=== PATIENT | female | born 1985 | race Caucasian/White ===

== ENCOUNTER → 2022-05-31 10:09 | Outpatient (BNVA) | payer MEDICAID, SELFPAY | PROVIDERS: PCP Nurse Practitioner Family; Visit Provider Nurse Practitioner Family | DX: N93.9 Abnormal uterine and vaginal bleeding, unspecified (principal); Z13.6 Encounter for screening for cardiovascular disorders; D64.9 Anemia, unspecified | CPT/HCPCS: 80053; 80061; 82607; 82670; 82728; 82746; 83001; 83002; 83550; 84146; 84439; 84443; 85025 ==

== ENCOUNTER → 2022-06-26 09:10 | Outpatient (BNVA) | payer MEDICAID, SELFPAY | PROVIDERS: PCP Nurse Practitioner Family; Visit Provider Nurse Practitioner Family | DX: D64.9 Anemia, unspecified (principal); N93.9 Abnormal uterine and vaginal bleeding, unspecified | CPT/HCPCS: 80053; 84146; 85025 ==

== ENCOUNTER → 2022-07-10 09:00 | Outpatient (BNVA) | payer MEDICAID, SELFPAY | PROVIDERS: PCP Nurse Practitioner Family; Visit Provider Obstetrics & Gynecology | DX: Z12.4 Encounter for screening for malignant neoplasm of cervix (principal); N93.9 Abnormal uterine and vaginal bleeding, unspecified; E22.1 Hyperprolactinemia | CPT/HCPCS: 83036; 83525; 84443; 87624; 88305 ==

== ENCOUNTER → 2022-08-21 11:02 | Outpatient (BNVA) | payer MEDICAID, SELFPAY | PROVIDERS: PCP Nurse Practitioner Family; Visit Provider Obstetrics & Gynecology | DX: N93.9 Abnormal uterine and vaginal bleeding, unspecified (principal); N83.292 Other ovarian cyst, left side | CPT/HCPCS: 76830 ==

== ENCOUNTER 2022-09-04 15:53 | Outpatient (CLI) | payer MEDICAID, SELFPAY ==
--- NOTE | 2022-09-04 16:00 | MR_ITS ---
WS: [id number] MRI HEAD WITHOUT AND WITH CONTRAST WITH ATTENTION TO THE PITUITARY TECHNIQUE: Sagittal T1, T2 axial, T2 axial FLAIR, axial susceptibility weighted imaging, axial diffus ion weighted images, and coronal T2 images were obtained. Pre and post-T1 axial and post T1 coronal i mages. ADC and FSPGR images. Post gadolinium images with pituitary protocol with dynamic images. Sin e CLINICAL INFORMATION: E22.1 - Hyperprolactinemia COMPARISON: None. FINDINGS: 4 mm hypoenhancing focus in the RIGHT aspect of the pituitary seen on the post gadolinium and dynamic images suspicious for microadenoma. Otherwise normal pituitary enhancement. No suprasellar lesions. Normal optic chiasm and pituitary infundibulum. Normal cavernous sinuses and Meckel's cave. No evidence of restricted diffusion to suggest acute ischemia. Ventricular system and basal cisterns are patent. No suspicious intracranial signal abnormalities. Normal posterior fossa. Normal vascular flow voids at the skull base. No extra-axial fluid collections. No evidence of mass or mass effect. P aranasal sinuses and mastoid air cells well aerated. No hemosiderin on susceptibly weighted images. Temporal lobes and hippocampal formations are normal i n appearance. Normal posterior nasopharynx. No abnormal gadolinium enhancement. Normal dural venous sinuses. MR/MR pituitary wo/w con* [id number] IMPRESSION: 1. 4 mm focus of hypoenhancement RIGHT aspect of the pituitary suspicious for microadenoma.Correlation with pituitary function studies. 2. Pituitary is otherwise normal in appearance. Normal optic chiasm and pituit mendy infundibulum. 3. No other suspicious intracranial signal abnormalities. 4. No other suspicious findings.
[2022-09-04] MEDS: gadobenate dimeglumine 20 mL vial IV (16:44)
== END 2022-09-04 15:54 | disposition home or self-care (01) ==
LOC: RAD 15:54
PROVIDERS: PCP Nurse Practitioner Family; Visit Provider Obstetrics & Gynecology
DX: E22.1 Hyperprolactinemia (principal)
CPT/HCPCS: 70553; A9577

== ENCOUNTER 2022-10-17 08:02 | Day surgery (SDC) | payer MEDICAID, SELFPAY ==
[2022-10-16 08:42] VITALS: BMI 36.3
[2022-10-17] VITALS (10 sets, daily range): BP systolic 126–159; BP diastolic 74–99; PULSE 86–106; RESP 16–22; TEMP 36.1–36.4; O2SAT 97–100
[2022-10-17] MEDS: sodium chloride 0.9% 1,000 ML 30 ML IV (08:25)
--- NOTE | 2022-10-17 09:32 | W.PM.OPSUD ---
Surgery/Procedure H&P Update DATE OF PROCEDURE: October 17, 2022 DATE H&P PERFORMED: 10/13/22 H&P UPDATE INFORMATION: I have reviewed H&P completed within last 30 days, I have examined patient prior to procedure and No changes to prior documentation PREOP DIAGNOSIS: abnormal endometrial ultrasound PLANNED PROCEDURE: Operation Date: 10/17/22 09:30 Proposed Procedures p Hysteroscopy, dilation and curettage with Myosure 66912, [id number],N93.9(Not Applicable) - Gisselle Lloyd MD s Dilation And Curettage (D&C)(Not Applicable) - Gisselle Lloyd MD Related Problem List Diagnoses (1) Abnormal endometrial ultrasound: (2) Abnormal uterine bleeding (AUB):
[2022-10-17] MEDS: ceFAZolin 2,000 MG in sodium chloride 0.9% (plus) 50 ML 100 MG IV (09:45)
--- NOTE | 2022-10-17 10:17 | ANES.PREANE2 ---
Pre-Anesthetic Assessment Height/Weight: Height 1.63 m Weight 96.162 kg Temp Pulse Resp BP Pulse Ox O2 Del Method 97 F L 106 H 18 159/94 99 10/17/22 08:13 10/17/22 08:13 10/17/22 08:13 10/17/22 08:25 10/17/22 08:13 10/17/22 08:13 Preop Diagnosis: abnormal endometrial ultrasound Operation Date: 10/17/22 09:30 Proposed Procedures p Hysteroscopy, dilation and curettage with Myosure 98690, [id number],N93.9(Not Applicable) - Gisselle Lloyd MD s Dilation And Curettage (D&C)(Not Applicable) - Gisselle Lloyd MD Familial anesthetic complications: none Was Beta Misbah taken within 24 hours: N/A Was Clonidine taken within 24 hours: N/A Last intake: Intake Last Liquid Date 10/17/22 Last Liquid Time 06:30 Last Solid Date 10/16/22 Last Solid Time 23:00 Social Alcohol and Tobacco Exam alert, oriented x 3 and regular rate & rhythm Airway Submandibular: within normal limits Cervical ROM: within normal limits Mallampati: Class II Dentition: full Pulmonary Chronic Obstructive Pulmonary Disease CV/HEM Anemia Anesthetic Plan ASA status: 2 Anesthesia: General Medications/Allergies Home Medications Medication Instructions Recorded Confirmed Last Taken Type No Known Home Medications 09/06/22 10/16/22 Unknown History Allergies Allergy/AdvReac Type Severity Reaction Status Date / Time No Known Allergies Allergy Verified 10/17/22 08:11 Current Medications Generic Name Dose Route Start Last Admin Trade Name Freq PRN Reason Stop Dose Admin Sodium Chloride 1,000 mls @ 30 mls/hr 10/17/22 08:15 10/17/22 08:25 Sodium Chloride 0.9% IV 10/18/22 08:14 30 mls/hr .Q24H WINSOME Administration PFSH Anesthesia Medical History No pertinent past medical history Surgical History No pertinent past surgical history Family History Grandfather Hypertension Grandmother Diabetes Family/Other Diabetes Denies family history of Colon cancer Ovarian cancer Heart disease Hypercholesteremia Breast cancer Uterine cancer Thyroid disease Stroke Female Reproductive History Date of last menstrual period: 10/10/22 Data Anesthesia Cardiac Studies: No Data to Display
--- NOTE | 2022-10-17 10:35 | PM.OP ---
Operative Report Date of procedure: October 17, 2022 Pre-op diagnosis: Preop Diagnosis abnormal endometrial ultrasound Post-op diagnosis: Thickened endometrium Procedure done: hysteroscopy, D&C, myosure Specimens removed/disposition: endometrial curettings to pathology Surgeon: Gisselle Lloyd Anesthesia: MAC Estimated blood loss (mL): 5 IV fluids (mL): 300 Complications: none Findings: hysteroscopy deficit 220 ml Condition: stable Disposition: PACU Procedure: The patient was taken to the operating room where monitored anesthesia was administered and to be adequate. She was prepped and draped in the normal sterile fashion in the dorsal lithotomy position in [facility]. A weighted speculum was placed into the vagina and the anterior lip of the cervix grasped with a single-tooth tenaculum. The uterus was sounded to 7 cm. The cervix was dilated to 16 Nepali. The hysteroscope was advanced into the endometrial cavity. There was excessive tissue visualized. The MyoSure device was activated and the tissue was removed. Pictures were taken pre and post procedure. All instruments were removed. The patient tolerated the procedure well. Sponge lap and needle counts were correct x3. She was taken to the recovery room in stable condition.
--- NOTE | 2022-10-17 10:39 | PM.DCS ---
Discharge Providers Date of Admission: 10/17/22 Date of Discharge: October 17, 2022 Attending Provider at Admission: Dr. Lloyd Attending Provider at Discharge: Gisselle Lloyd MD Primary Care Provider: SANDRA Torrez Diagnoses at Discharge Discharge Diagnosis (1) Abnormal endometrial ultrasound: Status: Acute (2) Abnormal uterine bleeding (AUB): Status: Acute Reason for Visit Reason for Visit: Abnormal uterine and vaginal bleeding, unspecifie Hospital Course Hospital Course The patient was admitted for surgery. she did well postoperatively and was ready for discharge. Discharge Data Studies Completed and Pending Pending at discharge Category Date Time Status ORHCG [OR HCG Qualitative Urine] Routine Lab 10/17/22 08:06 Ordered Pathology: Surgical [PTH] Routine Pth 10/17/22 10:30 Ordered Vitals Last Vital Signs Temp 97 F L 10/17/22 08:13 Pulse 106 H 10/17/22 08:13 Resp 18 10/17/22 08:13 BP 159/94 10/17/22 08:25 Pulse Ox 99 10/17/22 08:13 O2 Del Method 10/17/22 08:13 Discharge Plan Discharge Patient Disposition: Home Condition: Stable Prescriptions: Continued No Known Home Medications Discharge Orders: Discharge Order (Routine); Ordered 10/17/22 Ordered By: Gisselle Lloyd Discharge Attestations Time Spent in Discharge Care*: less than 30 min Quality Metrics Clinical Quality Measures [ No reported AMI, CVA or VTE this stay] Coding Level of Care Code Acute Code for Chg Fwd Diagnoses Abnormal endometrial ultrasound R93.5 Abnormal uterine bleeding (AUB) N93.9
[2022-10-17 10:49] LABS: OR HCG Qualitative Urine Negative (Negative)
--- NOTE | 2022-10-17 16:14 | ANE.PACU2 ---
Inpatient post-anesthesia follow up: Airway intact: Yes Vital signs: Temperature 97.5 F Pulse Rate 89 Respiratory Rate 16 Blood Pressure 136/87 Pulse Oximetry 99 Oxygen Delivery Me thod Room Air Oxygen Flow Rate Fraction of Inspir ed Oxygen Hydration adequate: Yes Nausea and vomiting: No Pain level: 2 Mental status: Baseline
== END 2022-10-17 11:25 | disposition home or self-care (01) ==
PROVIDERS: Anesthesiology; PCP Nurse Practitioner Family; Visit Provider Obstetrics & Gynecology
PROC: 0UDB8ZZ Extraction of Endometrium, Via Natural or Artificial Opening Endoscopic (ICD-10-PCS; CPT 58558; principal; 2022-10-17 09:20)
PROC: (CPT 58120; 2022-10-17 09:20)
DX: R93.89 Abnormal findings on diagnostic imaging of other specified body structures (principal); J44.9 Chronic obstructive pulmonary disease, unspecified
CPT/HCPCS: 58558; 81025; 84703; 88305; J0690; J2405; J2704; J3010; J7030

== ENCOUNTER 2022-12-12 10:20 | Observation (INO) | payer MEDICAID, SELFPAY ==
[2022-12-07 09:05] VITALS: BMI 35.6
[2022-12-07 09:48] LABS: Basophils # 0.1 10^3/uL (0.0-0.1); Basophils % 1.3 %; Eosinophils # 0.1 10^3/uL (0.0-0.8); Eosinophils % 1.8 %; Hematocrit 31.8 % (37.0-47.0); Hemoglobin 9.1 g/dL (11.5-15.3); Lymphocytes # 1.7 10^3/uL (0.8-4.8); Lymphocytes % 37.7 %; Mean Corpuscular HGB Conc 28.6 g/dL (30.0-36.0); Mean Corpuscular Hemoglobin 20.4 pg (28.0-34.0); Mean Corpuscular Volume 71.5 fl (81-99); Mean Platelet Volume 9.1 fL (7.4-10.4); Monocytes # 0.5 10^3/uL (0.2-0.9); Monocytes % 10.8 %; Neutrophils # 2.15 10^3/uL (1.8-7.7); Neutrophils % 48.2 %; Nucleated Red Blood Cells % 0 %; Platelet Count 470 10^3/cmm (130-400); Red Blood Count 4.45 10^6/uL (4.1-5.3); Red Cell Distribution Width 20.4 % (12.1-15.1); White Blood Count 4.5 10^3/uL (4.0-10.0)
--- NOTE | 2022-12-07 09:49 | ANES.PREANE2 ---
Pre-Anesthetic Assessment Height/Weight: Height 1.63 m Weight 94.347 kg Preop Diagnosis: abnormal endometrial ultrasound Operation Date: 12/12/22 08:45 Proposed Procedures p Laparoscopic assisted vaginal hysterectomy 14843 , bilateral [id number] , possible bilateral salpingo-oophorectomy 54459,N93.9(Not Applicable) - Gisselle Lloyd MD s Laparoscopic Salpingectomy(Bilateral) - Gisselle Lloyd MD Familial anesthetic complications: None Was Beta Misbah taken within 24 hours: N/A Was Clonidine taken within 24 hours: N/A Last intake: > 8hrs Social Alcohol (2-3 beers a night or up to 8 oz of whiskey/liquor a night) and Tobacco Exam alert, oriented x 3, clear to auscultation bilaterally and regular rate & rhythm Airway Mallampati: Class II Dentition: full Metabolic Morbid Obesity Anesthetic Plan ASA status: 2 Anesthesia: General Risk of > 500 ml blood loss (7ml/kg in children): No Medications/Allergies Home Medications Medication Instructions Recorded Confirmed Last Taken Type No Known Home Medications 09/06/22 12/07/22 Unknown History Allergies Allergy/AdvReac Type Severity Reaction Status Date / Time hydrocodone Allergy ADR-Vomitin Verified 12/07/22 09:05 g [facility] Anesthesia Medical History No pertinent past medical history Surgical History No pertinent past surgical history Family History Grandfather Hypertension Grandmother Diabetes Family/Other Diabetes Denies family history of Colon cancer Ovarian cancer Heart disease Hypercholesteremia Breast cancer Uterine cancer Thyroid disease Stroke Data Anesthesia 12/07/22 09:21 12/07/22 09:21 Short CBC 12/07/22 Range/Units 09:21 WBC 4.5 (4.0-10.0) 10^3/uL Hgb 9.1 L (11.5-15.3) g/dL Hct 31.8 L (37.0-47.0) % MCV 71.5 L (81-99) fl Plt Count 470 H (130-400) 10^3/cmm Neut % (Auto) 48.2 % Neut # (Auto) 2.15 (1.8-7.7) 10^3/uL Cardiac Studies: No Data to Display
[2022-12-07 10:11] LABS: Anion Gap 17.6 (5-19); Blood Urea Nitrogen 10 mg/dL (6-20); Calcium 8.9 mg/dL (8.5-10.5); Carbon Dioxide 22 mmol/L (22-29); Chloride 102 mmol/L (98-107); Glomerular Filtration Rate 113.8 mL/min (90-130); Glucose 104 mg/dL (65-115); Osmolality Calculated 285 mOsm/kg (285-295); Potassium 3.6 mmol/L (3.5-5.1); Sodium 138 mmol/L (136-145)
[2022-12-12] VITALS (17 sets, daily range): BP systolic 98–170; BP diastolic 49–105; PULSE 77–114; RESP 16–19; TEMP 36.4–37.1; O2SAT 93–100
[2022-12-12] MEDS: CELEcoxib 200 mg Capsule 400 MG PO (06:22)
[2022-12-12] MEDS: gabapentin 300 mg Capsule PO (06:22)
[2022-12-12] MEDS: phenazopyridine 100 mg Tablet 200 MG PO ×3 (06:22→23:03)
[2022-12-12] MEDS: scopolamine 1.5 Patch 1 PATCH TRANSDERMA (06:22)
[2022-12-12] MEDS: sodium chloride 0.9% 1,000 ML 30 ML IV (06:23)
[2022-12-12] MEDS: acetaminophen 1,000 MG/100 ML PIGGYBACK 400 MG IV (06:23)
[2022-12-12 06:34] LABS: OR HCG Qualitative Urine Negative (Negative)
--- NOTE | 2022-12-12 06:48 | P.ANESUD_ITS ---
Pre-Anesthetic Update Pre-Anesthetic Assessment: Date of Surgery/Procedure: 12/12/22 Preop Kirsty gnosis: aub, anemia,abnormal pap, uterine prolapse Proposed Procedure: Operation Date: 12/12/22 07:00 Proposed Procedures p Laparoscopic assisted vaginal hysterectomy 15293 , bilateral [id number] , possible bilateral salpingo-oophorectomy 61268,N93.9(Not Applicable) - Gisselle Lloyd MD s Laparoscopic Salpingectomy(Bilateral) - Gisselle Lloyd MD Any changes to Pre-Anesthetic Assessment?: No Last Intake: Intake Last Liquid Date 12/11/22 Last Liquid Time 23:00 Last Solid Date 12/11/22 Last Solid Time 23:00 Vitals: Temperature 97.5 F L 12/12/22 06:14 Pulse Rate 114 H 12/12/22 06:14 Respiratory Rate 16 12/12/22 06:14 Blood Pressure 170/105 12/12/22 06:14 Blood Pressure Kasandra n 126 12/12/22 06:14 Pulse Oximetry 96 12/12/22 06:14 Oxygen Delivery Me thod 12/12/22 06:14 Exam: Pre-Anes Outpt Exam: alert, oriented x 3, clear to auscultation bilaterally and regular rate & rhythm Cardiac Studies: No Data to Display
--- NOTE | 2022-12-12 07:00 | W.PM.OPSUD ---
Surgery/Procedure H&P Update DATE OF PROCEDURE: December 12, 2022 DATE H&P PERFORMED: 12/07/22 H&P UPDATE INFORMATION: I have reviewed H&P completed within last 30 days, I have examined patient prior to procedure and No changes to prior documentation PREOP DIAGNOSIS: aub, anemia,abnormal pap, uterine prolapse PLANNED PROCEDURE: Operation Date: 12/12/22 07:00 Proposed Procedures p Laparoscopic assisted vaginal hysterectomy 42903 , bilateral [id number] , possible bilateral salpingo-oophorectomy 92065,N93.9(Not Applicable) - Gisselle Lloyd MD s Laparoscopic Salpingectomy(Bilateral) - Gisselle Lloyd MD
[2022-12-12] MEDS: ceFAZolin 2,000 MG in sodium chloride 0.9% (plus) 50 ML 100 MG IV ×3 (07:06→23:03)
[2022-12-12] MEDS: vasopressin 20 unit/mL INJ INJECTION (08:01)
--- NOTE | 2022-12-12 09:58 | P.OP_ITS ---
Operative Report Date of procedure: December 12, 2022 Pre-op diagnosis: Preop Diagnosis aub, anemia,abnormal pap, uterine prolapse Post-op diagnosis: same Post-op findings: 9 week sized uterus, normal appearing tubes and ovaries Procedure done: LAVH, bilateral salpingectomy, cystoscopy Specimens removed/disposition: uterus and bilateral fallopian tubes to pathology Surgeon: Gisselle Lloyd Anesthesia: General Estimated blood loss (mL): 500 IV fluids (mL): 1,650 Urine output (mL): 300 Complications: none Findings: 9 week sized uterus, normal appearing tubes and ovaries. Pelvic adhesions Condition: stable Disposition: PACU Procedure: The patient was taken to the operating room where general anesthesia was administered and found to be adequate. She was prepped and draped in the normal sterile fashion in the dorsal lithotomy position in [facility]. A Toure catheter was placed. A weighted speculum was placed into the vagina and the anterior lip of the cervix was grasped with a single tooth tenaculum. The Zumi uterine manipulator was placed. The weighted speculum was removed. The gloves were changed and attention was turned to the abdomen. A 5 mm supraumbilical incision was made. Using a 5 mm port with the camera, the port was placed into the abdomen. The abdomen was insufflated. Two low, lateral 5 mm ports were placed on the left and right under direct visualization from the camera. The right tube was grasped and elevated. Using the laparoscopic cautery, the me sosalpinx was divided between the ovary and tube. The tube was removed. This was performed the same way on the left. The uteroovarian ligaments as well as the round ligaments were ligated. Attention was then turned to the vaginal portion of the procedure. The weighted speculum was placed into the vagina. The zumi manipulator was removed. The single tooth tenaculum was removed and replaced with the angel's tenaculum. 10 mL of dilute Pitressin was injected at the vesicovaginal junction. A circumferential incision was made at the vesicovaginal junction and the vaginal mucosa reflected cephalad. The posterior peritoneum was entered sharply with the Metzenbaum scissors and the long weighted speculum replaced. Using the Aminata clamps the uterosacral ligaments were clamped cut and suture- ligated. The anterior peritoneum was entered sharply with the metzenbaum scissors. Then sequentially the uterine arteries and cardinal ligaments were clamped cut and suture-ligated. A single-tooth tenaculum was used to deliver the uterus. The remaining segement of the utero-ovarian ligaments were clamped cut and suture-ligated bilaterally and the specimen was removed. There was good hemostasis with only mild bleeding from the cuff. The peritoneum was closed with a pursestring using 2-0 Vicryl. The vaginal cuff was closed with 0 Vicryl in a running locked pattern incorporating the uterosacral ligaments into the lateral aspects of the vaginal cuff. The Toure catheter was removed and the cystoscope advanced into the bladder. The patient was given pyridium and bilateral spill was noted. There were no injuries or deficits noted in the bladder. The cystoscope was removed and the Toure was replaced. Vaginal packing was placed for good hemostasis. The gloves and gowns were changed and attention was turned to the abdomen. The ports were closed with 2-0 monocryl with skin glue. The patient tolerated the procedure well. Sponge lap and needle counts were correct x3. She was taken to the recovery room in stable condition.
[2022-12-12] MEDS: fentaNYL 50 mcg/mL INJ 2mL IVP (10:11)
[2022-12-12] MEDS: dextrose 5%-lactated ringers 1,000 ML 125 ML IV ×2 (11:02→19:09)
[2022-12-12] MEDS: ketorolac 30 mg/mL INJ IVP ×3 (11:02→23:03)
--- NOTE | 2022-12-12 14:14 | ANE.PACU2 ---
Inpatient post-anesthesia follow up: Airway intact: Yes Vital signs: Temperature 98.1 F Pulse Rate 92 Respiratory Rate 18 Blood Pressure 104/65 Pulse Oximetry 96 Oxygen Delivery Me thod Room Air Oxygen Flow Rate Fraction of Inspir ed Oxygen Hydration adequate: Yes Nausea and vomiting: No Pain level: 1 Mental status: Baseline
[2022-12-13 04:00] VITALS: BP 126/79; PULSE 113; RESP 18; TEMP 36.9; O2SAT 97
[2022-12-13] MEDS: ketorolac 30 mg/mL INJ IVP (04:15)
[2022-12-13 06:24] LABS: Hematocrit 23.3 % (37.0-47.0); Mean Corpuscular HGB Conc 27.9 g/dL (30.0-36.0); Mean Corpuscular Hemoglobin 20.3 pg (28.0-34.0); Mean Corpuscular Volume 72.8 fl (81-99); Mean Platelet Volume 8.9 fL (7.4-10.4); Platelet Count 346 10^3/cmm (130-400); Red Cell Distribution Width 19.8 % (12.1-15.1); White Blood Count 9.4 10^3/uL (4.0-10.0)
[2022-12-13 06:42] LABS: Hemoglobin 6.5 g/dL (11.5-15.3)
--- NOTE | 2022-12-13 06:45 | PC.NURSE ---
THIS NURSE CALLED JAMIE AT 0645 ON 12/13/2022 TO LET HER KNOW PT HGB HAD DROPPED FROM 9.1 TO 6.5 JAMIE STATED SHE WOULD TALK TO PT THIS MORNING ABOUT IT.
--- NOTE | 2022-12-13 06:48 | PC.NURSE ---
THIS NURSE REMOVED VAGINAL PACKING @0500 SCANT AMOUNT OF BLOOD NOTED ON VAGINAL PACKING AND PROCEDURE TOLERATED WELL.
[2022-12-13] MEDS: ibuprofen 800 mg tablet PO (09:51)
[2022-12-13] MEDS: phenazopyridine 100 mg Tablet 200 MG PO (09:51)
[2022-12-13 10:00] VITALS: BP 147/91; PULSE 95; RESP 17; TEMP 36.8; O2SAT 96
--- NOTE | 2022-12-13 10:11 | PM.DCS ---
Discharge Providers Date of Admission: 12/12/22 10:20 Date of Discharge: December 13, 2022 Attending Provider at Admission: Gisselle Lloyd MD Attending Provider at Discharge: Gisselle Lloyd MD Primary Care Provider: SANDRA Torrez Reason for Visit Reason for Visit: N93.9 Hospital Course Hospital Course The patient was admitted for surgery. she did well postoperatively. She was very anemic prior to surgery. Her hemoglobin dropped to 6.5 postoperatively. She was doing well. She was offered a blood transfusion prior to discharge, but she declined. She had no orthostatic changes. She denied any dizziness. She was able to ambulate without difficulty. She stated that she would rather go home and take iron. Physical Exam Narrative: The patient has no concerns this morning. She is ambulating, tolerating a regular diet. Pain is well controlled on no medication. Packing a jacobs have been removed Const: COMMON NORMALS: no acute distress, patient oriented x3, no limitations, healthy appearing, alert and well nourished GENERAL APPEARANCE: cooperative, comfortable, well kempt and well developed ORIENTATION/CONSCIOUSNESS: Yes awake, Yes oriented to person, Yes oriented to place and Yes oriented to time Resp: COMMON NORMALS: normal respiratory effort GI: COMMON NORMALS: Soft to palpation and non-tender PALPATION: Yes Soft to palpation Extremity: COMMON NORMALS: no calf tenderness Neuro: COMMON NORMALS: patient oriented x3 SENSORIUM/ORIENTATION: Yes alert, Yes oriented to person, Yes oriented to place and Yes oriented to time Psych: COMMON NORMALS: mental status grossly normal, Normal thought process present, cooperative, normal affect and speech normal APPEARANCE: Yes well kempt SPEECH: Yes normal speech THOUGHT PROCESS: Normal thought process present Urinary Catheter Management: Jacobs: Cath Placed During This Visit: yes, but has since been removed by the nurse Reason for Continuing Indwelling Catheter: Decision to DC Catheter Urinary Catheter Date of Insertion: 12/12/22 Urinary Catheter Time of Insertion: 07:46 Date Urinary Catheter Removed: 12/13/22 Time Urinary Catheter Discontinued: 05:00 Discharge Data Studies Completed and Pending Pending at discharge Category Date Time Status Urine Culture Routine Lab 12/12/22 07:46 Results Pathology: Surgical [PTH] Routine Pth 12/12/22 10:05 Received Laboratory Results WBC 9.4 10^3/uL (4.0-10.0) 12/13/22 06:05 RBC 3.20 10^6/uL (4.1-5.3) L 12/13/22 06:05 Hgb 6.5 g/dL (11.5-15.3) L* 12/13/22 06:05 Hct 23.3 % (37.0-47.0) L 12/13/22 06:05 MCV 72.8 fl (81-99) L 12/13/22 06:05 MCH 20.3 pg (28.0-34.0) L 12/13/22 06:05 MCHC 27.9 g/dL (30.0-36.0) L 12/13/22 06:05 RDW 19.8 % (12.1-15.1) H 12/13/22 06:05 Plt Count 346 10^3/cmm (130-400) 12/13/22 06:05 MPV 8.9 fL (7.4-10.4) 12/13/22 06:05 Neut % (Auto) 48.2 % 12/07/22 09:21 Lymph % (Auto) 37.7 % 12/07/22 09:21 [place] % (Auto) 10.8 % 12/07/22 09:21 Eos % (Auto) 1.8 % 12/07/22 09:21 Baso % (Auto) 1.3 % 12/07/22 09:21 Neut # (Auto) 2.15 10^3/uL (1.8-7.7) 12/07/22 09:21 Lymph # (Auto) 1.7 10^3/uL (0.8-4.8) 12/07/22 09:21 [place] # (Auto) 0.5 10^3/uL (0.2-0.9) 12/07/22 09:21 Eos # (Auto) 0.1 10^3/uL (0.0-0.8) 12/07/22 09:21 Baso # (Auto) 0.1 10^3/uL (0.0-0.1) 12/07/22 09:21 Nucleated RBC % (auto) 0 % 12/07/22 09:21 Nucleated RBCs # 0.0 /100WBC 12/07/22 09:21 Sodium 138 mmol/L (136-145) 12/07/22 09:21 Potassium 3.6 mmol/L (3.5-5.1) 12/07/22 09:21 Chloride 102 mmol/L (98-107) 12/07/22 09:21 Carbon Dioxide 22 mmol/L (22-29) 12/07/22 09:21 Anion Gap 17.6 (5-19) 12/07/22 09:21 BUN 10 mg/dL (6-20) 12/07/22 09:21 Creatinine 0.6 mg/dL (0.5-0.9) 12/07/22 09:21 GFR Calculation 113.8 mL/min (90-130) 12/07/22 09:21 Glucose 104 mg/dL (65-115) 12/07/22 09:21 Calculated Osmolality 285 mOsm/kg (285-295) 12/07/22 09:21 Calcium 8.9 mg/dL (8.5-10.5) 12/07/22 09:21 Urine HCG, Qual Negative (Negative) 12/12/22 06:11 Blood Type A Positive 12/07/22 09:21 Rho(D) Type Positive 12/07/22 09:21 Antibody Screen Negative 12/07/22 09:21 Vitals Last Vital Signs Temp 98.4 F 12/13/22 04:00 Pulse 113 H 12/13/22 04:00 Resp 18 12/13/22 04:00 BP 126/79 12/13/22 04:00 Pulse Ox 97 12/13/22 04:00 O2 Del Method Room Air 12/13/22 04:00 Discharge Plan Discharge Patient Disposition: Home Condition: Stable Prescriptions: New ibuprofen 800 mg Tablet 800 mg PO Q8H Qty: 30 0RF oxycodone-acetaminophen 5-325 mg Tablet 1 tab PO Q4H PRN (Reason: Moderate To Severe Pain) Qty: 10 0RF docusate sodium 100 mg Capsule 100 mg PO BID Qty: 60 0RF Discharge Orders: Discharge Order (Routine); Ordered 12/13/22 Ordered By: Gisselle Lloyd Patient Instructions: Opioid Safety Discharge Attestations Time Spent in Discharge Care*: less than 30 min Quality Metrics Clinical Quality Measures [ No reported AMI, CVA or VTE this stay] Coding Level of Care Code Acute Code for Chg Fwd Diagnoses
[2022-12-13 10:50] VITALS: BP 147/91; PULSE 95; RESP 17; TEMP 36.8; O2SAT 96
== END 2022-12-13 10:50 | disposition home or self-care (01) ==
LOC: OBGYN 10:39
PROVIDERS: Anesthesiology; Admitting Provider Obstetrics & Gynecology; PCP Nurse Practitioner Family; Visit Provider Obstetrics & Gynecology
PROC: 0UT9FZZ Resection of Uterus, Via Natural or Artificial Opening With Percutaneous Endoscopic Assistance (ICD-10-PCS; CPT 58550; principal; 2022-12-12 07:00)
PROC: (CPT 58661; 2022-12-12 07:00)
PROC: 0TJB8ZZ Inspection of Bladder, Via Natural or Artificial Opening Endoscopic (ICD-10-PCS; CPT 52000; 2022-12-12 07:00)
DX: N80.03 Adenomyosis of the uterus (principal); D64.9 Anemia, unspecified; E66.01 Morbid (severe) obesity due to excess calories; Z68.35 Body mass index [BMI] 35.0-35.9, adult; Z88.5 Allergy status to narcotic agent
CPT/HCPCS: 58550; 58661; 36415; 80048; 84703; 85025; 85027; 86850; 86900; 87086; 88305; 96374; 96376; G0378; J0131; J0690; J1100; J1170; J1885; J2405; J2704; J3010; J3490; J7030; J7121; P9045

== ENCOUNTER → 2022-12-21 07:58 | Outpatient (BNVA) | payer MEDICAID, SELFPAY | PROVIDERS: PCP Nurse Practitioner Family; Visit Provider Obstetrics & Gynecology | DX: D64.9 Anemia, unspecified (principal) | CPT/HCPCS: 85025 ==